=== PATIENT | female | born 1960 | race Caucasian/White ===

== ENCOUNTER → 2017-04-10 | Outpatient (CLI) | payer BC ==
[~2017-04-10] MED LIST: B-COCAP2 PO; CALCTAB5 PO; CHOL100010 PO; CPXI SQ; DIAZ2TAB PO; DICL1GEL12 TOP; MULT-506 PO; gabapentin PO; pantoprazole PO; ranitidine PO
--- NOTE | 2017-04-10 07:57 | DIAGNOSTIC IMAGING REPORT ---
(BARIUM SWALLOW) ESOPHAGUS CLINICAL HISTORY: K21.9 Laryngopharyngeal reflux. Patient with globus sensation and COMPARISON STUDY: None. FLUOROSCOPY TIME: 1.2 minutes. 22 images submitted. FINDINGS: The patient swallowed barium without difficulty. The contours of the hypopharynx are within normal limits. The esophagus is normal in course, caliber, and motility. No hiatus hernia. No gastroesophageal reflux. The barium tablet passed without difficulty. IMPRESSION: Normal barium swallow. Electronically signed by: Sathya Campos M.D. 04/10/2017 7:56 AM Dictated Date/Time: 04/10/2017 7:55 AM
== END | disposition home or self-care (01) ==
LOC: C.RAD 06:57
DX: K21.9 Gastro-esophageal reflux disease without esophagitis (principal)

== ENCOUNTER → 2017-05-01 | Outpatient (CLI) | payer BC ==
--- NOTE | 2017-05-01 08:30 | DIAGNOSTIC IMAGING REPORT ---
LEFT HIP UNILATERAL 2 VIEWS CLINICAL HISTORY: M25.551 Bilateral hip pain Both pain COMPARISON: None. DISCUSSION: Moderate degenerative narrowing left hip joint space. No evidence for acetabular protrusion. Cortical margins are intact. There is no evidence for soft tissue swelling. IMPRESSION: Moderate degenerative change left hip. No acute process. Electronically signed by: Chris Rodriguez M.D. 05/01/2017 8:29 AM Dictated Date/Time: 05/01/2017 8:28 AM
--- NOTE | 2017-05-01 08:33 | DIAGNOSTIC IMAGING REPORT ---
RIGHT HIP 2 VIEWS CLINICAL HISTORY: Right hip pain. FINDINGS: AP and frog-leg views of the right hip are correlated with pelvic radiograph dated 06/28/2010. The skeletal structures are osteopenic. No fracture is seen in the right hip or the imaged right hemipelvis. Mild arthritic change and joint space narrowing is noted in the right hip. Sclerotic degenerative change is present in the right sacroiliac joint. The overlying soft tissues are within normal limits. IMPRESSION: Osteopenia and mild degenerative change as above. No acute bony abnormality is seen. Electronically signed by: Elvis Gu M.D. 05/01/2017 8:31 AM Dictated Date/Time: 05/01/2017 8:30 AM
[2017-05-01 11:09] LABS: BASO % 0.3 %; BASO ABS # 0.02 K/uL (0-0.2); COMPLETE YES; EOS % 2.7 %; HEMATOCRIT 45.6 % (37-47); IG% 0.2 %; LYMPH % 22.4 %; MEAN CELL VOLUME 92.3 fL (80-100); MEAN CORPUSCULAR HEMOGLOBIN 28.5 pg (25-34); MEAN CORPUSCULAR HGB CONC 30.9 g/dl (32-36); MEAN PLATELET VOLUME 10.2 fL (7.4-10.4); MONO % 7.8 %; NEUT % 66.6 %; PLATELET COUNT 254 K/uL (130-400); RED BLOOD COUNT 4.94 M/uL (4.2-5.4); WHITE BLOOD COUNT 6.25 K/uL (4.8-10.8)
[2017-05-01 11:22] LABS: CALCIUM 9.2 mg/dl (8.5-10.1)
[2017-05-01 11:23] LABS: ALT/SGPT 39 U/L (12-78); AST/SGOT 26 U/L (15-37); BLOOD UREA NITROGEN 12 mg/dl (7-18); BUN/CREATININE RATIO 15.8 (10-20); CARBON DIOXIDE 31 mmol/L (21-32); CHLORIDE 103 mmol/L (98-107); CREATININE 0.78 mg/dl (0.60-1.20); GLUCOSE 53 mg/dl (70-99); POTASSIUM 3.5 mmol/L (3.5-5.1); SODIUM 141 mmol/L (136-145)
[2017-05-01 11:24] LABS: ESTIMATED AVERAGE GLUCOSE 114 mg/dl; HA1C FLAG Normal (Normal)
[2017-05-01 11:32] LABS: ALB/GLOB RATIO 1.1 (0.9-2); ALKALINE PHOSPHATASE 91 U/L (45-117)
[2017-05-01 14:30] LABS: LYME DISEASE AB IGG NEG (NEG)
[2017-05-01 14:32] LABS: LYME DISEASE AB IGM NEG (NEG)
== END | disposition home or self-care (01) ==
LOC: C.RADBC 07:20
PROVIDERS: ATTEND Family Medicine
DX: M25.551 Pain in right hip (principal); M25.552 Pain in left hip; R22.1 Localized swelling, mass and lump, neck; R73.03 Prediabetes; M25.50 Pain in unspecified joint; G37.9 Demyelinating disease of central nervous system, unspecified; M85.851 Other specified disorders of bone density and structure, right thigh

== ENCOUNTER → 2017-05-03 | Outpatient (CLI) | payer BC ==
--- NOTE | 2017-05-03 11:51 | DIAGNOSTIC IMAGING REPORT ---
THYROID ULTRASOUND HISTORY: FULLNESS OF NECK COMPARISON: None. FINDINGS: Right lobe: 5.1 x 1.6 x 1.4 cm. No nodules. A 3 mm cyst within the lower pole. Left lobe: 4.7 x 1.6 x 1.6 cm. A 5 mm hypoechoic nodule containing a single punctate calcification. Isthmus: 2 mm in thickness. No nodules. IMPRESSION: A 5 mm hypoechoic nodule within the left thyroid lobe which does not meet sonographic criteria for biopsy. The thyroid gland is normal in size. Electronically signed by: Sathya Campos M.D. 05/03/2017 11:49 AM Dictated Date/Time: 05/03/2017 11:48 AM
== END | disposition home or self-care (01) ==
LOC: C.ULTRBC 11:17
PROVIDERS: ATTEND Family Medicine
DX: E04.1 Nontoxic single thyroid nodule (principal)

== ENCOUNTER → 2017-05-21 | Outpatient (CLI) | payer BC | END | disposition home or self-care (01) | LOC: C.RDSM 09:37 | PROVIDERS: ATTEND Physical Medicine & Rehabilitation Sports Medicine | DX: M16.9 Osteoarthritis of hip, unspecified (principal) ==

== ENCOUNTER → 2017-05-29 | Outpatient (CLI) | payer BC ==
--- NOTE | 2017-05-29 08:04 | DIAGNOSTIC IMAGING REPORT ---
MRI OF THE LEFT HIP WITHOUT CONTRAST CLINICAL HISTORY: Bilateral hip pain, left more severe than right. COMPARISON STUDY: Hip radiographs May 01, 2017 and pelvis radiograph May 21, 2017. TECHNIQUE: Utilizing a 1.5 Zari magnet and dedicated coil, multiplanar, multiecho imaging of the left hip was performed without intravenous or intraarticular contrast. FINDINGS: No suspicious marrow replacement is present. There is no joint effusion. There is no marrow edema to suggest a fracture within the visualized skeletal structures. There is mild axial joint space narrowing of the left hip. There is linear signal within the anterior superior left acetabular labrum consistent with a labral tear. The right acetabular labrum is suboptimally assessed on this examination. No mass or fluid collection shown adjacent to the left hip. Visualized structures within the pelvis are unremarkable. There are findings suggestive of mild bilateral trochanteric bursitis. IMPRESSION: 1. Anterior superior left acetabular labral tear. 2. Mild axial joint space narrowing of the left hip. 3. Mild bilateral trochanteric bursitis. 3. No fracture or evidence of avascular necrosis. Electronically signed by: Hans Medellin M.D. 05/29/2017 8:03 AM Dictated Date/Time: 05/29/2017 7:50 AM
== END | disposition home or self-care (01) ==
LOC: C.MRIBC 06:36
PROVIDERS: ATTEND Physical Medicine & Rehabilitation Sports Medicine
DX: M16.6 Other bilateral secondary osteoarthritis of hip (principal)

== ENCOUNTER → 2017-07-19 | Outpatient (CLI) | payer BC ==
--- NOTE | 2017-07-19 08:12 | DIAGNOSTIC IMAGING REPORT ---
MRI OF THE LUMBAR SPINE WITHOUT CONTRAST CLINICAL HISTORY: Demyelinating disease. Acute low back pain with left-sided radiculopathy. COMPARISON STUDY: No previous studies for comparison. TECHNIQUE: Utilizing a 1.5 Zari magnet and dedicated coil, multiplanar, multiecho imaging of the lumbar spine was performed without IV contrast. FINDINGS: For purposes of numbering on this exam, the L5-S1 disc space is assigned to axial image 23 of 25. Alignment of the lumbar spine is anatomic. Vertebral body heights are maintained. There is no marrow edema or marrow replacement. Conus terminates at the mid L1 level. No signal abnormalities are identified within visualized portions of the cord although only the most inferior aspect of the cord was imaged on this exam. There is no intracanalicular mass or fluid collection. The paravertebral soft tissues are unremarkable. L1-2: The central canal and neural foramen are patent. L2-3: Central canal and left neural foramen are patent. A small right foraminal disc protrusion is noted with mild narrowing of the right neural foramen. There is no significant mass effect upon the exiting right L2 nerve root. L3-4: There is mild disc bulge and facet arthrosis. There is a central annular tear. The central canal and neural foramen are patent. L4-5: There is disc bulge with a small central disc protrusion. There is minimal narrowing of the central canal and lateral recesses. The neural foramen are patent. L5-S1: Central canal and neural foramen are patent. IMPRESSION: 1. Mild multilevel degenerative disc disease and facet arthrosis of the lumbar spine. Small central disc protrusion at L4-L5 with mild narrowing of the central canal and lateral recesses. 2. Small right foraminal disc protrusion at L2-L3 with mild narrowing of the right neural foramen. Electronically signed by: Hans Medellin M.D. 07/19/2017 8:11 AM Dictated Date/Time: 07/19/2017 7:49 AM
== END | disposition home or self-care (01) ==
LOC: C.MRIBC 06:56
PROVIDERS: ATTEND Physician Assistant Medical
DX: G37.9 Demyelinating disease of central nervous system, unspecified (principal); M51.36 Other intervertebral disc degeneration, lumbar region; M51.26 Other intervertebral disc displacement, lumbar region

== ENCOUNTER → 2017-12-23 | Outpatient (CLI) | payer BC ==
[2017-12-23 11:28] LABS: ALT/SGPT 29 U/L (12-78); AST/SGOT 21 U/L (15-37); BLOOD UREA NITROGEN 16 mg/dl (7-18); CALCIUM 9.2 mg/dl (8.5-10.1); CARBON DIOXIDE 29 mmol/L (21-32); CHOLESTEROL 185 mg/dl (0-200); CREATININE 0.77 mg/dl (0.60-1.20); GLUCOSE 82 mg/dl (70-99); SODIUM 140 mmol/L (136-145)
[2017-12-23 11:36] LABS: ALKALINE PHOSPHATASE 72 U/L (45-117); LDL CHOLESTEROL CALCULATED 104 mg/dl; TOTAL PROTEIN 7.4 gm/dl (6.4-8.2)
[2017-12-23 12:02] LABS: HEMOGLOBIN A1C 5.5 % (4.5-5.6)
== END | disposition home or self-care (01) ==
LOC: C.LABBC 07:07
PROVIDERS: ATTEND Internal Medicine
DX: K90.0 Celiac disease (principal); E55.9 Vitamin D deficiency, unspecified; G37.9 Demyelinating disease of central nervous system, unspecified; E78.5 Hyperlipidemia, unspecified; R73.03 Prediabetes; M25.50 Pain in unspecified joint